=== PATIENT | male | born 1960 | race Two or more races ===

== ENCOUNTER 2023-11-01 16:49 | Inpatient (IN) | payer OTHER ==
[~2023-11-01] VITALS: Ht 172.7 cm; Wt 88.2 kg
[2023-11-01 18:04] LABS: Basophils # (auto) 0 10 ^3/uL (0-0.2); Basophils % (auto) 0.4 % (0.0-2.0); Eosinophils # (auto) 0.1 10 ^3/uL (0-0.8); Eosinophils % (auto) 1.9 % (0.0-7.0); Hematocrit 25.6 % (41.0-53.0); Hemoglobin 8.6 g/dL (13.5-17.5); Lymphocytes # (auto) 0.8 10 ^3/uL (0.4-5.4); Lymphocytes % (auto) 15.1 % (10.0-50.0); Mean Corpuscular Hemoglobin 27.7 pg (28.0-32.0); Mean Corpuscular Hgb Conc. 33.5 g/dL (32.0-36.0); Mean Corpuscular Volume 82.5 fL (80.0-100.0); Monocytes # (auto) 0.5 10 ^3/uL (0-1.3); Monocytes % (auto) 8.8 % (0.0-12.0); Neutrophils % (auto) 73.8 % (37.0-80.0); Nucleated Red Blood Cells % 0.1 %; Platelet Count (auto) 195 10^3/uL (140-450); Red Cell Distribution Width 18.9 % (11.8-14.3); White Blood Cell 5.5 10^3/uL (4.4-10.8)
[2023-11-01 18:21] LABS: Alanine Aminotransferase 43 U/L (7-40); Albumin 4.3 g/dL (3.2-4.8); Alkaline Phosphatase 92 U/L (46-116); Anion Gap 16 (5-15); Aspartate Aminotransferase 19 U/L (13-40); BUN/Creatinine Ratio 11.9 (10.0-20.0); Bilirubin, Total 0.3 mg/dL (0.2-1.0); Calcium 9.3 mg/dL (8.7-10.4); Carbon Dioxide 11 mmol/L (20-30); Chloride 113 mmol/L (98-107); Glucose 100 mg/dL (74-106); Potassium 4.9 mmol/L (3.5-5.1); Sodium 140 mmol/L (136-145); Total Protein 6.9 g/dL (5.7-8.2)
[2023-11-01 18:32] LABS: Blood Urea Nitrogen 93 mg/dL (9-23)
[2023-11-01] MEDS: PANTOPRAZOLE 40 MG TAB PO ONE (18:43)
[2023-11-01 18:44] LABS: Lipase 407 U/L (12-53)
[2023-11-01 18:49] VITALS: PULSE 80; RESP 16; O2SAT 97
[2023-11-01 19:48] LABS: Urine Amorphous Crystal FEW /hpf (None Seen); Urine Bacteria FEW /hpf (None Seen); Urine Blood 1+ /uL (Negative); Urine Clarity Turbid (Clear); Urine Color Colorless (Yellow); Urine Protein, UAD 1+ (Negative); Urine Urobilinogen Normal (Negative); Urine WBC 5 /hpf (0 - 3)
[2023-11-01] MEDS ORDERED: NITROGLYCERIN 0.4 MG SL TAB SL PRN (22:00)
[2023-11-01] MEDS ORDERED: HYDROcodone-ACET 5/325MG TAB PO PRN (22:00)
[2023-11-01] MEDS ORDERED: MORPHINE SULFATE INJ 2 MG/ml SYRG IV PRN (22:00)
[2023-11-01] MEDS ORDERED: ONDANSETRON HCL 4 MG/2 ML VIAL IV PRN (22:00)
[2023-11-01] MEDS ORDERED: ACETAMINOPHEN 325 MG TAB PO PRN (22:00)
[2023-11-01] MEDS ORDERED: DOCUSATE SOD 100 MG CAP PO PRN (22:00)
[2023-11-01] MEDS: SODIUM BICARB 50mEq/50ml Vial 150 ML in D5W 5% 1,000 ML IV ONE (22:44)
[2023-11-02] VITALS (8 sets, daily range): BP systolic 105–122; BP diastolic 50–72; PULSE 64–77; RESP 16–20; TEMP 97.8–99; O2SAT 96–100
[2023-11-02 05:47] LABS: Basophils # (auto) 0 10 ^3/uL (0-0.2); Eosinophils # (auto) 0.1 10 ^3/uL (0-0.8); Lymphocytes # (auto) 0.9 10 ^3/uL (0.4-5.4); Monocytes # (auto) 0.5 10 ^3/uL (0-1.3); Neutrophils # (auto) 2.9 10 ^3/uL (1.6-8.6)
[2023-11-02 05:50] LABS: Basophils % (auto) 0.4 % (0.0-2.0); Eosinophils % (auto) 2.6 % (0.0-7.0); Hematocrit 24.2 % (41.0-53.0); Lymphocytes % (auto) 19.7 % (10.0-50.0); Mean Corpuscular Hemoglobin 27.4 pg (28.0-32.0); Monocytes % (auto) 11.5 % (0.0-12.0); Neutrophils % (auto) 65.8 % (37.0-80.0); Nucleated Red Blood Cells % 0.4 %; Platelet Count (auto) 161 10^3/uL (140-450); Red Blood Cells 2.91 10^6/uL (4.5-5.90); Red Cell Distribution Width 18.7 % (11.8-14.3); White Blood Cell 4.4 10^3/uL (4.4-10.8)
[2023-11-02 06:06] LABS: % Iron Saturation 19.9 % (20-55); Alanine Aminotransferase 34 U/L (7-40); Albumin 3.7 g/dL (3.2-4.8); Alkaline Phosphatase 82 U/L (46-116); Anion Gap 13 (5-15); Aspartate Aminotransferase 17 U/L (13-40); BUN/Creatinine Ratio 10.6 (10.0-20.0); Calcium 8.9 mg/dL (8.7-10.4); Carbon Dioxide 13 mmol/L (20-30); Chloride 117 mmol/L (98-107); Glucose 91 mg/dL (74-106); Potassium 4.6 mmol/L (3.5-5.1); Sodium 143 mmol/L (136-145)
[2023-11-02 06:07] LABS: Bilirubin, Total 0.2 mg/dL (0.2-1.0); Phosphorus 8.1 mg/dL (2.4-5.1); Total Protein 5.9 g/dL (5.7-8.2)
[2023-11-02 06:30] LABS: Blood Urea Nitrogen 82 mg/dL (9-23)
[2023-11-02] MEDS ORDERED: LEVO75TA6 PO (10:01)
[2023-11-02] MEDS: PANTOPRAZOLE 40 MG/10 ML VIAL INJ IV SCH (11:50)
[2023-11-02] MEDS: IRON SUCROSE COMPLEX 100 ML IV SCH (11:51)
[2023-11-02] MEDS: SEVELAMER 800 MG TAB PO SCH (17:12)
[2023-11-02] MEDS: LACTATED RINGER'S 1,000 ML IV SCH (17:28)
[2023-11-02 18:51] LABS: Protein, Urine 135.4 mg/dL (0.0-11.9)
[2023-11-02 18:52] LABS: Creatinine, Urine 36.45 mg/dL (30.0-125.0)
[2023-11-02 18:54] LABS: Creatinine, Urine 36.37 mg/dL (30.0-125.0); Urine Protein/Creatinine Ratio 3.72
[2023-11-03] VITALS (10 sets, daily range): BP systolic 111–130; BP diastolic 60–74; PULSE 70–96; RESP 17–20; TEMP 97.6–98.6; O2SAT 96–100
[2023-11-03 05:53] LABS: Basophils # (auto) 0 10 ^3/uL (0-0.2); Basophils % (auto) 0.4 % (0.0-2.0); Eosinophils # (auto) 0.1 10 ^3/uL (0-0.8); Eosinophils % (auto) 2.3 % (0.0-7.0); Hemoglobin 7.9 g/dL (13.5-17.5); Lymphocytes # (auto) 0.8 10 ^3/uL (0.4-5.4); Monocytes # (auto) 0.5 10 ^3/uL (0-1.3); Neutrophils # (auto) 3.2 10 ^3/uL (1.6-8.6); Neutrophils % (auto) 70.2 % (37.0-80.0); Platelet Count (auto) 163 10^3/uL (140-450); White Blood Cell 4.6 10^3/uL (4.4-10.8)
[2023-11-03 05:55] LABS: Hematocrit 23.4 % (41.0-53.0); Lymphocytes % (auto) 16.8 % (10.0-50.0); Mean Corpuscular Hemoglobin 27.5 pg (28.0-32.0); Mean Corpuscular Hgb Conc. 33.7 g/dL (32.0-36.0); Mean Corpuscular Volume 81.5 fL (80.0-100.0); Monocytes % (auto) 10.3 % (0.0-12.0); Nucleated Red Blood Cells % 0.2 %; Red Blood Cells 2.87 10^6/uL (4.5-5.90); Red Cell Distribution Width 18.7 % (11.8-14.3)
[2023-11-03 06:03] LABS: Chloride 115 mmol/L (98-107); Sodium 145 mmol/L (136-145)
[2023-11-03 06:04] LABS: Anion Gap 14 (5-15); Carbon Dioxide 16 mmol/L (20-30)
[2023-11-03 06:08] LABS: Uric Acid 9.3 mg/dL (3.7-9.2)
[2023-11-03 06:09] LABS: BUN/Creatinine Ratio 11.4 (10.0-20.0); Glucose 87 mg/dL (74-106)
[2023-11-03 06:18] LABS: Blood Urea Nitrogen 89 mg/dL (9-23)
[2023-11-03 09:07] LABS: Anti-Nuclear Antibody Direct Negative (Negative); Complement C3 132 mg/dL (82-167)
[2023-11-03 15:59] LABS: INR 1.03 (0.9-1.15); Partial Thromboplastin Time 34.1 SEC (24.5-34.5); Prothrombin Time 10.9 sec (9.3-11.8)
[2023-11-03] MEDS: SODIUM BICARBONATE 650 MG TAB PO SCH (18:05)
[2023-11-04] VITALS (8 sets, daily range): BP systolic 105–122; BP diastolic 53–68; PULSE 60–94; RESP 16–20; TEMP 97.3–98.1; O2SAT 91–99
[2023-11-04 05:57] LABS: Basophils # (auto) 0 10 ^3/uL (0-0.2); Eosinophils # (auto) 0.1 10 ^3/uL (0-0.8); Hemoglobin 7.9 g/dL (13.5-17.5); Lymphocytes # (auto) 0.8 10 ^3/uL (0.4-5.4); Mean Corpuscular Hgb Conc. 33.7 g/dL (32.0-36.0); Monocytes # (auto) 0.4 10 ^3/uL (0-1.3); Neutrophils # (auto) 2.9 10 ^3/uL (1.6-8.6); White Blood Cell 4.3 10^3/uL (4.4-10.8)
[2023-11-04 06:00] LABS: Basophils % (auto) 0.5 % (0.0-2.0); Eosinophils % (auto) 3.3 % (0.0-7.0); Hematocrit 23.5 % (41.0-53.0); Lymphocytes % (auto) 19.2 % (10.0-50.0); Mean Corpuscular Hemoglobin 27.2 pg (28.0-32.0); Mean Corpuscular Volume 80.8 fL (80.0-100.0); Monocytes % (auto) 9.3 % (0.0-12.0); Neutrophils % (auto) 67.7 % (37.0-80.0); Nucleated Red Blood Cells % 0.1 %; Platelet Count (auto) 160 10^3/uL (140-450); Red Cell Distribution Width 18.6 % (11.8-14.3)
[2023-11-04 06:11] LABS: Chloride 116 mmol/L (98-107); Potassium 4.9 mmol/L (3.5-5.1); Sodium 147 mmol/L (136-145)
[2023-11-04 06:12] LABS: Anion Gap 13 (5-15); Carbon Dioxide 18 mmol/L (20-30)
[2023-11-04 06:13] LABS: Calcium 9.4 mg/dL (8.7-10.4)
[2023-11-04 06:17] LABS: Glucose 80 mg/dL (74-106)
[2023-11-04 06:18] LABS: BUN/Creatinine Ratio 10.4 (10.0-20.0)
[2023-11-04 06:25] LABS: Blood Urea Nitrogen 87 mg/dL (9-23)
[2023-11-04] MEDS: SOD CHL 0.45% 1,000 ML IV SCH (15:30)
[2023-11-05] VITALS (8 sets, daily range): BP systolic 108–119; BP diastolic 58–69; PULSE 57–81; RESP 14–20; TEMP 97.3–98; O2SAT 94–97
[2023-11-05 06:11] LABS: Basophils # (auto) 0 10 ^3/uL (0-0.2); Eosinophils # (auto) 0.2 10 ^3/uL (0-0.8); Hemoglobin 7.7 g/dL (13.5-17.5); Lymphocytes # (auto) 0.8 10 ^3/uL (0.4-5.4); Monocytes # (auto) 0.5 10 ^3/uL (0-1.3); Neutrophils # (auto) 2.7 10 ^3/uL (1.6-8.6); Nucleated Red Blood Cells % 0.1 %
[2023-11-05 06:14] LABS: Basophils % (auto) 0.6 % (0.0-2.0); Eosinophils % (auto) 3.7 % (0.0-7.0); Hematocrit 22.9 % (41.0-53.0); Mean Corpuscular Hemoglobin 27.5 pg (28.0-32.0); Mean Corpuscular Hgb Conc. 33.7 g/dL (32.0-36.0); Mean Corpuscular Volume 81.4 fL (80.0-100.0); Neutrophils % (auto) 64.7 % (37.0-80.0); Platelet Count (auto) 151 10^3/uL (140-450); Red Blood Cells 2.81 10^6/uL (4.5-5.90); Red Cell Distribution Width 18.3 % (11.8-14.3); White Blood Cell 4.2 10^3/uL (4.4-10.8)
[2023-11-05 06:21] LABS: Anion Gap 10 (5-15); Carbon Dioxide 19 mmol/L (20-30); Chloride 114 mmol/L (98-107); Potassium 5.3 mmol/L (3.5-5.1); Sodium 143 mmol/L (136-145)
[2023-11-05 06:22] LABS: Calcium 9.3 mg/dL (8.7-10.4)
[2023-11-05 06:27] LABS: BUN/Creatinine Ratio 10.2 (10.0-20.0); Glucose 80 mg/dL (74-106)
[2023-11-05 06:37] LABS: Blood Urea Nitrogen 83 mg/dL (9-23)
[2023-11-05] MEDS: SODIUM ZIRCONIUM CYCL 10 GM PAK PO ONE (09:48)
[2023-11-05] MEDS: FUROSEMIDE 100 MG/10ML VIAL IV ONE (10:01)
[2023-11-05] MEDS: SODIUM BICARB 8.4% 50Meq/50ml SYR Vial IV ONE (17:47)
[2023-11-06] VITALS (8 sets, daily range): BP systolic 104–121; BP diastolic 50–71; PULSE 63–86; RESP 15–20; TEMP 97.6–98.2; O2SAT 94–97
[2023-11-06 05:51] LABS: Chloride 114 mmol/L (98-107); Potassium 4.7 mmol/L (3.5-5.1); Sodium 146 mmol/L (136-145)
[2023-11-06 05:52] LABS: Anion Gap 11 (5-15); Carbon Dioxide 21 mmol/L (20-30)
[2023-11-06 05:53] LABS: Calcium 8.9 mg/dL (8.7-10.4)
[2023-11-06 05:57] LABS: BUN/Creatinine Ratio 9.7 (10.0-20.0); Glucose 81 mg/dL (74-106)
[2023-11-06 05:59] LABS: Basophils # (auto) 0 10 ^3/uL (0-0.2); Basophils % (auto) 0.6 % (0.0-2.0); Eosinophils # (auto) 0.1 10 ^3/uL (0-0.8); Eosinophils % (auto) 3.1 % (0.0-7.0); Hematocrit 22.6 % (41.0-53.0); Hemoglobin 7.6 g/dL (13.5-17.5); Lymphocytes % (auto) 21.2 % (10.0-50.0); Mean Corpuscular Hemoglobin 27.4 pg (28.0-32.0); Mean Corpuscular Hgb Conc. 33.8 g/dL (32.0-36.0); Mean Corpuscular Volume 81.1 fL (80.0-100.0); Monocytes # (auto) 0.5 10 ^3/uL (0-1.3); Monocytes % (auto) 10.7 % (0.0-12.0); Neutrophils % (auto) 64.4 % (37.0-80.0); Platelet Count (auto) 150 10^3/uL (140-450); Red Blood Cells 2.78 10^6/uL (4.5-5.90); Red Cell Distribution Width 18.1 % (11.8-14.3); White Blood Cell 4.6 10^3/uL (4.4-10.8)
[2023-11-06 06:14] LABS: Blood Urea Nitrogen 81 mg/dL (9-23)
[2023-11-06 08:06] LABS: Immunoglobulin A 50 mg/dL (61-437); Immunoglobulin G, Serum 514 mg/dL (603-1613); Immunoglobulin M 8 mg/dL (20-172)
[2023-11-06 09:06] LABS: Kappa Lite Chain Free Serum 35.8 mg/L (3.3-19.4)
[2023-11-06 19:06] LABS: Antimyeloperoxidase (MPO) Ab <0.2 units (0.0-0.9); Antiproteinase 3 (PR-3) Ab <0.2 units (0.0-0.9)
[2023-11-07] VITALS (15 sets, daily range): BP systolic 96–163; BP diastolic 48–90; PULSE 66–96; RESP 13–20; TEMP 97–98.4; O2SAT 94–99
[2023-11-07 09:06] LABS: Albumin 2.8 g/dL (2.9-4.4); Alpha-1-Globulin 0.3 g/dL (0.0-0.4); Alpha-2-Globulin 0.9 g/dL (0.4-1.0); Gamma Globulin 0.5 g/dL (0.4-1.8); Globulin Total 2.8 g/dL (2.2-3.9); Protein Total Serum 5.6 g/dL (6.0-8.5)
[2023-11-07] MEDS: HEPARIN SODIUM (PORCINE) 5000 UNITS/ML 1ML VIAL ONE (09:24)
[2023-11-07] MEDS: MIDAZOLAM HCL 2MG/2ML 2ml VIAL (1mg/ml) ONE (09:24)
[2023-11-07] MEDS: fentaNYL CITRATE 100 MCG/2 ML VL ONE (09:24)
[2023-11-07] MEDS: HEPARIN IN NS 1000Units/500mL 1,500 ML ONE (09:25)
[2023-11-07] MEDS: IODIXANOL 320MG/ML 100ML BTL IV ONE (09:25)
[2023-11-07] MEDS: LIDOCAINE 2%HCL (LOCAL ANESTH.) INJ 10ml MDV ONE (09:25)
[2023-11-07] MEDS: EPOETIN ALFA-EPBX 4,000 UNIT/ML VIAL SC SCH (09:38)
[2023-11-07 09:47] LABS: Prothrombin Time 10.5 sec (9.3-11.8)
[2023-11-07 09:48] LABS: INR 0.97 (0.9-1.15); Partial Thromboplastin Time 30.7 SEC (24.5-34.5)
[2023-11-07] MEDS: ceFAZolin 1GM/50ML 50 ML IV ONE (10:33)
[2023-11-07 10:40] LABS: Chloride 113 mmol/L (98-107); Potassium 4.6 mmol/L (3.5-5.1); Sodium 145 mmol/L (136-145)
[2023-11-07 10:41] LABS: Anion Gap 14 (5-15); Carbon Dioxide 18 mmol/L (20-30)
[2023-11-07 10:42] LABS: Calcium 9.8 mg/dL (8.7-10.4)
[2023-11-07 10:46] LABS: Glucose 85 mg/dL (74-106)
[2023-11-07 10:47] LABS: BUN/Creatinine Ratio 9.9 (10.0-20.0); Blood Urea Nitrogen 79 mg/dL (9-23)
[2023-11-07] MEDS: SODIUM CHL 0.9% 1000 ML BAG XX ONE (18:45)
[2023-11-07] MEDS: EPOETIN ALFA-EPBX 4,000 UNIT/ML VIAL SC ONE (21:12)
[2023-11-08] VITALS (8 sets, daily range): BP systolic 99–110; BP diastolic 45–67; PULSE 71–90; RESP 16–20; TEMP 97.6–99; O2SAT 95–99
[2023-11-08 09:41] LABS: Anion Gap 9 (5-15); Calcium 9.6 mg/dL (8.7-10.4); Carbon Dioxide 27 mmol/L (20-30); Chloride 107 mmol/L (98-107); Potassium 4.5 mmol/L (3.5-5.1); Sodium 143 mmol/L (136-145)
[2023-11-08 09:47] LABS: BUN/Creatinine Ratio 8.7 (10.0-20.0); Blood Urea Nitrogen 58 mg/dL (9-23); Glucose 86 mg/dL (74-106)
[2023-11-08] MEDS: ASPirin 81 mg TAB PO SCH (12:45)
[2023-11-08 13:07] LABS: Cytoplasmic (C-ANCA) <1:20 titer (Neg:<1:20); Perinuclear (P-ANCA) <1:20 titer (Neg:<1:20)
[2023-11-09] VITALS (9 sets, daily range): BP systolic 121–149; BP diastolic 49–70; PULSE 72–96; RESP 17–20; TEMP 97.7–99.2; O2SAT 95–97
[2023-11-09 06:06] LABS: Albumin Urine 3.2 % (.); Alpha-1-Globulin Urine 1.8 % (.); Alpha-2-Globulin Urine 4.4 % (.); Beta Globulin Urine 69.1 % (.); Gamma Globulin Urine 21.5 % (.); M-Spike % 60.1 % (Not Observed); Protein Total Urine 215.4 mg/dL (Not Estab.)
[2023-11-09] MEDS ORDERED: SODIUM CHL 0.9% 1000 ML BAG XX ONE (08:15)
[2023-11-09 09:41] LABS: Hepatitis B Surface Antigen Negative (Negative)
[2023-11-09 09:58] LABS: Chloride 104 mmol/L (98-107); Potassium 4.1 mmol/L (3.5-5.1); Sodium 139 mmol/L (136-145)
[2023-11-09 09:59] LABS: Anion Gap 6 (5-15); Calcium 9.6 mg/dL (8.7-10.4); Carbon Dioxide 29 mmol/L (20-30)
[2023-11-09 10:02] LABS: Hepatitis B Core IgM Negative
[2023-11-09 10:02] LABS: Basophils # (auto) 0 10 ^3/uL (0-0.2); Basophils % (auto) 0.6 % (0.0-2.0); Eosinophils # (auto) 0.1 10 ^3/uL (0-0.8); Eosinophils % (auto) 1.9 % (0.0-7.0); Hematocrit 26.1 % (41.0-53.0); Hemoglobin 8.7 g/dL (13.5-17.5); Lymphocytes # (auto) 1.7 10 ^3/uL (0.4-5.4); Mean Corpuscular Hemoglobin 27.2 pg (28.0-32.0); Mean Corpuscular Hgb Conc. 33.5 g/dL (32.0-36.0); Mean Corpuscular Volume 81.2 fL (80.0-100.0); Monocytes # (auto) 0.5 10 ^3/uL (0-1.3); Monocytes % (auto) 8.4 % (0.0-12.0); Neutrophils # (auto) 3.4 10 ^3/uL (1.6-8.6); Neutrophils % (auto) 60.1 % (37.0-80.0); Platelet Count (auto) 170 10^3/uL (140-450); Red Blood Cells 3.21 10^6/uL (4.5-5.90); Red Cell Distribution Width 18.1 % (11.8-14.3); White Blood Cell 5.7 10^3/uL (4.4-10.8)
[2023-11-09 10:03] LABS: Hepatitis C Antibody Negative (Negative)
[2023-11-09 10:04] LABS: BUN/Creatinine Ratio 9.2 (10.0-20.0); Glucose 119 mg/dL (74-106)
[2023-11-09 10:24] LABS: Blood Urea Nitrogen 39 mg/dL (9-23)
[2023-11-09] MEDS ORDERED: SEVE800T7 PO (15:56)
[2023-11-09 16:30] LABS: Hepatitis A Ab IgM Negative
[2023-11-09] MEDS: EPOETIN ALFA-EPBX 10,000 UNIT/1ML VIAL SC ONE (20:59)
[2023-11-10 01:00] VITALS: BP 125/61; PULSE 87; RESP 16; TEMP 98.6; O2SAT 93
[2023-11-10 05:00] VITALS: BP 126/50; PULSE 94; RESP 16; TEMP 98.9; O2SAT 95
[2023-11-10 08:00] VITALS: PULSE 77
[2023-11-10 09:00] VITALS: BP 123/62; PULSE 76; RESP 17; TEMP 99.4; O2SAT 91
[2023-11-10 13:00] VITALS: BP 104/61; PULSE 83; RESP 17; TEMP 98.7; O2SAT 94
[2023-11-10 14:57] LABS: Chloride 99 mmol/L (98-107); Potassium 3.6 mmol/L (3.5-5.1); Sodium 137 mmol/L (136-145)
[2023-11-10 14:58] LABS: Anion Gap 10 (5-15); Carbon Dioxide 28 mmol/L (20-30)
[2023-11-10 15:03] LABS: BUN/Creatinine Ratio 7.5 (10.0-20.0); Glucose 199 mg/dL (74-106)
[2023-11-10 15:14] LABS: Blood Urea Nitrogen 50 mg/dL (9-23)
[2023-11-10 17:00] VITALS: BP 126/53; PULSE 71; RESP 17; TEMP 98.4; O2SAT 95
== END 2023-11-10 18:56 | disposition home or self-care (01) | DRG 674 ==
LOC: ER 16:49 → TELE 21:58 → TELE-E-ADS 11-02 08:24 → TELE-EAST 11-02 11:05
PROVIDERS: ADMIT Nurse Practitioner Family; ATTEND Internal Medicine
PROC: 0JH63XZ Insertion of Tunneled Vascular Access Device into Chest Subcutaneous Tissue and Fascia, Percutaneous Approach (ICD-10-PCS; principal; 2023-11-07)
PROC: 02HV33Z Insertion of Infusion Device into Superior Vena Cava, Percutaneous Approach (ICD-10-PCS; 2023-11-07)
PROC: B5181ZA Fluoroscopy of Superior Vena Cava using Low Osmolar Contrast, Guidance (ICD-10-PCS; 2023-11-07)
PROC: B548ZZA Ultrasonography of Superior Vena Cava, Guidance (ICD-10-PCS; 2023-11-07)
PROC: 5A1D70Z Performance of Urinary Filtration, Intermittent, Less than 6 Hours Per Day (ICD-10-PCS; 2023-11-07)
PROC: 0TB13ZX Excision of Left Kidney, Percutaneous Approach, Diagnostic (ICD-10-PCS; 2023-11-08)
PROC: 5A1D70Z Performance of Urinary Filtration, Intermittent, Less than 6 Hours Per Day (ICD-10-PCS; 2023-11-09)
DX: N17.9 Acute kidney failure, unspecified (principal); C90.00 Multiple myeloma not having achieved remission; E87.20 Acidosis, unspecified; E87.0 Hyperosmolality and hypernatremia; E03.9 Hypothyroidism, unspecified; D50.9 Iron deficiency anemia, unspecified; E87.5 Hyperkalemia; E83.39 Other disorders of phosphorus metabolism; D63.1 Anemia in chronic kidney disease; R74.8 Abnormal levels of other serum enzymes; N18.6 End stage renal disease; I95.9 Hypotension, unspecified; Z99.2 Dependence on renal dialysis
CPT/HCPCS: 36415; 36558; 71045; 71250; 74176; 76775; 76942; 77001; 80048; 80053; 80074; 81001; 82306; 82570; 82784; 83036; 83520; 83521; 83540; 83550; 83690; 83970; 84100; 84155; 84156; 84165; 84166; 84300; 84484; 84550; 85025; 85610; 85730; 86038; 86160; 86256; 86334; 86335; 86850; 86900; 86901; 90935; 93005; 93971; 99152; C1894; G0378; J1642; J1756; J2001; J2250; J2470; Q9967

== ENCOUNTER 2024-02-23 09:30 | Emergency (ER) | payer OTHER ==
[~2024-02-23] VITALS: Ht 172.7 cm; Wt 75.3 kg
[~2024-02-23 09:30] MED LIST: LEVO75TA6 PO; SEVE800T7 PO
--- NOTE | 2024-02-23 09:57 | ED.PDOC ---
GI ASSESSMENT HPI Comments 63 y.o male with PMH of ESRD, dialysis M,W,F, multiple myeloma, presents to the ED for a chief complaint of dark tarry diarrhea x one day associated with chest discomfort and SOB x today. Patient reports finishing dialysis today and developed chest pain with SOB. Patient denies any blood thinner use, nausea, vomiting, abdominal pain, fever, or chills. Chief Complaint: GI Bleed Time Seen by MD: 09:54 Reviewed Notes: Nurses Notes, Medications, Allergies Allergies: Coded Allergies: NO KNOWN ALLERGIES (Unverified , 11/01/23) Home Meds Active Scripts Sevelamer Hydrochloride (Renagel) 800 Mg Tab, 1600 MG PO TIDWM for 30 Days, #180 TAB Prov:JARAD SO MD 11/09/23 Reported Medications Levothyroxine Sodium (Levothyroxine Sodium) 75 Mcg Tab, 1 TAB PO QAM 11/02/23 Information Source: Patient Mode of Arrival: Ambulatory Timing: Days (1) Duration: Since onset Quality: None Vomitus: None Stool: Loose, Black Severity: Moderate Recent: None Recent Hx of: None Pain Location: None Modifying Factors: Nothing Associated sign and symptoms: Blood in Stool Past Medical History PAST MEDICAL HISTORY: Cancer, ESRD Surgical History: Denies all surgeries Family History Family History: Reviewed,noncontributory to illness Social History Smoker: Non-Smoker Alcohol: Denies ETOH Use Drugs: Denies Drug Use Lives In: Home Constitutional: denies: chills, diaphoresis, fatigue, fever, malaise, sweats, weakness, others EENTM: denies: blurred vision, double vision, ear bleeding, ear discharge, ear drainage, ear pain, ear ringing, eye pain, eye redness, hearing loss, mouth pain, mouth swelling, nasal discharge, nose bleeding, nose congestion, nose pain, photophobia, tearing, throat pain, throat swelling, voice changes, others Respiratory: reports: SOB at rest, shortness of breath; denies: cough, hemopty sis, orthopnea, SOB with excertion, stridor, wheezing, others Cardiovascular: reports: chest pain; denies: dizzy spells, diaphoresis, Dyspnea on exertion, edema, irregular heart beat, left arm pain, lightheadedness, palpitations, PND, syncope, others Gastrointestinal: reports: melena; denies: abdomen distended, abdominal pain, blood streaked bowels, constipated, diarrhea, dysphagia, difficulty swallowing, hematemesis, nausea, poor appetite, poor fluid intake, rectal bleeding, rectal pain, vomiting, others Genitourinary: denies: burning, dysuria, flank pain, frequency, hematuria, incontinence, penile discharge, penile sore, pain, testicle pain, testicle swelling, urgency, others Neurological: denies: dizziness, fainting, headache, left sided numbness, left sided weakness, numbness, paresthesia, pre-existing deficit, right sided numbness, right sided weakness, seizure, speech problems, tingling, tremors, weakness, others Musculoskeletal: denies: back pain, gout, joint pain, joint swelling, muscle pain, muscle stiffness, neck pain, others Integumetry: denies: bruises, change in color, change in hair/nails, dryness, laceration, lesions, lumps, rash, wounds, others Allergic/Immunocompromised: denies: Difficulty Healing, Frequent Infections, Hives, Itching, others Hematologic/Lymphatic: denies: anemia, blood clots, easy bleeding, easy bruising, swollen glands, others Endocrine: denies: excessive hunger, excessive sweating, excessive thirst, excessive urination, flushing, intolerance to cold, intolerance to heat, unexplained weight gain, unexplained weight loss, others Psychiatric: denies: anxiety, bipolar disorder, depression, hopeless, panic disorder, schizophrenia, sleepless, suicidal, others All Other Systems: Reviewed and Negative Physical Exam General Appearance: Moderate Distress HEENT: Normal ENT Inspection, Pharynx Normal, TMs Normal Neck: Full Range of Motion, Non-Tender, Normal, Normal Inspection Respiratory: Chest Non-Tender, Lungs Clear, No Accessory Muscle Use, No Respiratory Distress, Normal Breath Sounds Cardiovascular: No Edema, No JVD, No Murmur, No Gallop, Normal Peripheral Pulses, Regular Rate/Rhythm Breast Exam: Deferred Gastrointestinal: No Organomegaly, Non Tender, No Pulsatile Mass, Normal Bowel Sounds, Soft Genitalia: Deferred Pelvic: Deferred Rectal: Deferred Extremities: No calf tenderness, Normal capillary refill, Normal inspection, Normal range of motion, Non-tender, No pedal edema Musculoskeletal : Apperance: Normal Neurologic: Alert, protein chemist II-XII nml as Tested, No Motor Deficits, Normal Affect, Normal Mood, No Sensory Deficits Cerebellar Function: Normal Reflexes: Normal Skin: Normal Color Peripheral Pulses: 3+ Radial (R), 3+ Radial (L) Lymphatic: No Adenopathy Was a procedure done? Was a procedure done?: No GI differential Dx Differential Diagnosis: Constipation, Diverticular disease, Esophagitis, Gastritis/PUD, Gastroenteritis, Viral, Anemia, Esophageal Varicies X-Ray, Labs, Meds, VS Vital Signs Date Time Temp Pulse Resp B/P (MAP) Pulse Ox O2 Delivery O2 Flow Rate FiO2 02/23/24 13:35 87 17 94/38 (56) 96 02/23/24 13:29 87 17 96 Room Air* 0 21 02/23/24 09:51 98.0 94 18 101/57 (72) 100 Lab Test 02/23/24 09:51 Range/Units White Blood Count 2.4 L 4.4-10.8 10^3/uL Red Blood Count 2.63 L 4.5-5.90 10^6/uL Hemoglobin 7.4 L 13.5-17.5 g/dL Hematocrit 22.8 L 41.0-53.0 % Mean Corpuscular Volume 86.7 80.0-100.0 fL Mean Corpuscular Hemoglobin 28.0 28.0-32.0 pg Mean Corpuscular Hemoglobin Concent 32.3 32.0-36.0 g/dL Red Cell Distribution Width 20.0 H 11.8-14.3 % Platelet Count 179 140-450 10^3/uL Mean Platelet Volume 9.5 6.9-10.8 fL Neutrophils (%) (Auto) 64.8 37.0-80.0 % Lymphocytes (%) (Auto) 18.4 10.0-50.0 % Monocytes (%) (Auto) 15.1 H 0.0-12.0 % Eosinophils (%) (Auto) 1.0 0.0-7.0 % Basophils (%) (Auto) 0.7 0.0-2.0 % Neutrophils # (Auto) 1.6 1.6-8.6 10 ^3/uL Lymphocytes # (Auto) 0.4 0.4-5.4 10 ^3/uL Monocytes # (Auto) 0.4 0-1.3 10 ^3/uL Eosinophils # (Auto) 0 0-0.8 10 ^3/uL Basophils # (Auto) 0 0-0.2 10 ^3/uL Nucleated Red Blood Cells 0.0 % Sodium Level 142 136-145 mmol/L Potassium Level 4.2 3.5-5.1 mmol/L Chloride Level 105 98-107 mmol/L Carbon Dioxide Level 31 20-31 mmol/L Anion Gap 6 5-15 Blood Urea Nitrogen 25 H 9-23 mg/dL Creatinine 3.73 H 0.700-1.30 mg/dL Glomerular Filtration Rate Calc 18 >90 mL/min BUN/Creatinine Ratio 6.7 L 10.0-20.0 Serum Glucose 82 74-106 mg/dL Calcium Level 8.9 8.7-10.4 mg/dL Current Medications Medications (Trade) Dose Ordered Sig/Jay Route Start Time Stop Time Status Last Admin Pantoprazole Sodium (Protonix) 40 mg ONCE ONCE IV 02/23/24 11:00 02/23/24 11:01 DC 02/23/24 11:46 Patient alert. Has a tunneled catheter for dialysis in place. Vitals stable. Answering all questions. Kidney function elevated. States that he has been having tarry stools for the past few days. Hemoglobin is low. GI consultation. Was given Protonix. Nephrology consultation. Reviewed his history. Explained to the patient. Continue cardiac monitoring. Time of 1ST Reevaluation: 10:05 Reevaluation 1ST: Unchanged Patient Education/Counseling: Diagnosis, Treatment, Prognosis Family Education/Counseling: No Family Present Additional Information The following tests were ordered, and results were reviewed by me: Labs I discussed treatment and results with medical personnel and patient Departure 1 Departure Time of Disposition: 10:47 Impression: Primary Impression: GI bleed Qualified Codes: K92.2 - Gastrointestinal hemorrhage, unspecified Additional Impressions: Severe anemia Chronic kidney disease on chronic dialysis Disposition: ADMITTED INPATIENT Admit to: Med Surg Condition: Guarded Critical Care Note Critical Care Time?: Yes (45 min-critical care time only) Stability Stability form required: No Heart Score Heart Score: Heart Score Response (Comments) Value History Slightly Suspicious 0 EKG Normal 0 Age 45-64 1 Risk Factors 1 or 2 risk factors 1 Troponin Normal limit 0 Total 2 I personally scribed for HARRIET CHAMBERS MD ([email or web address]) on 02/23/24 at 09:57. Electronically submitted by Enedina Braden ([facility]). I personally scribed for HARRIET CHAMBERS MD ([facility] on 02/23/24 at 10:09. Electronically submitted by Enedina Braden ([facility]). HARRIET CHAMBERS MD Feb 23, 2024 09:57
[2024-02-23 10:11] LABS: Basophils # (auto) 0 10 ^3/uL (0-0.2); Eosinophils # (auto) 0 10 ^3/uL (0-0.8); Lymphocytes # (auto) 0.4 10 ^3/uL (0.4-5.4); Mean Corpuscular Volume 86.7 fL (80.0-100.0); Monocytes # (auto) 0.4 10 ^3/uL (0-1.3); White Blood Cell 2.4 10^3/uL (4.4-10.8)
[2024-02-23 10:14] LABS: Basophils % (auto) 0.7 % (0.0-2.0); Hematocrit 22.8 % (41.0-53.0); Hemoglobin 7.4 g/dL (13.5-17.5); Lymphocytes % (auto) 18.4 % (10.0-50.0); Mean Corpuscular Hgb Conc. 32.3 g/dL (32.0-36.0); Monocytes % (auto) 15.1 % (0.0-12.0); Neutrophils # (auto) 1.6 10 ^3/uL (1.6-8.6); Neutrophils % (auto) 64.8 % (37.0-80.0); Platelet Count (auto) 179 10^3/uL (140-450); Red Blood Cells 2.63 10^6/uL (4.5-5.90)
[2024-02-23 10:33] LABS: Chloride 105 mmol/L (98-107); Potassium 4.2 mmol/L (3.5-5.1); Sodium 142 mmol/L (136-145)
[2024-02-23 10:34] LABS: Anion Gap 6 (5-15)
[2024-02-23 10:35] LABS: Calcium 8.9 mg/dL (8.7-10.4)
[2024-02-23 10:39] LABS: Carbon Dioxide 31 mmol/L (20-31); Glucose 82 mg/dL (74-106)
[2024-02-23 10:40] LABS: BUN/Creatinine Ratio 6.7 (10.0-20.0); Blood Urea Nitrogen 25 mg/dL (9-23)
[2024-02-23] MEDS: PANTOPRAZOLE 40 MG/10 ML VIAL INJ IV ONE (11:46)
[2024-02-23 13:29] VITALS: PULSE 87; RESP 17; O2SAT 96
[2024-02-23] MEDS ORDERED: ACETAMINOPHEN 325 MG TAB PO PRN (13:45)
[2024-02-23] MEDS ORDERED: MORPHINE SULFATE INJ 2 MG/ml SYRG IV PRN ×2 (13:45)
[2024-02-23] MEDS ORDERED: HYDROcodone-ACET 5/325MG TAB PO PRN (13:45)
[2024-02-23] MEDS ORDERED: NITROGLYCERIN 0.4 MG SL TAB SL PRN (13:45)
[2024-02-23] MEDS ORDERED: ONDANSETRON HCL 4 MG/2 ML VIAL IV PRN (13:45)
--- NOTE | 2024-02-23 14:07 | DVHHP2 ---
History of Present Illness Reason for Visit: Blurry diarrhea for last one day with two episodes History of Present Illness 63-year-old male with a known history of end-stage renal disease on hemodial ysis, multiple myeloma currently on chemotherapy, hypothyroidism initially presented to the hospital with bloody diarrhea two episodes for last one day. Patient was hospitalized here in October when he was diagnosed with a new onset of end-stage renal disease on hemodialysis as well as multiple myeloma. Patient is currently getting chemotherapy. Patient did mentioned that he is losing weight as well as having chronic diarrhea eventually he was recommended to follow up with the GI in 1-2 weeks. Patient stated that he had to cancel his appointment with GI. Patient did mentioned that over the last six months he lost about 80 lb. Patient has stated that she has chronic diarrhea has been resolved for last one month except two episodes of bloody bowel movements for last one day. GI: GI bleed Heme/Onc: Other (Multiple myeloma currently on chemotherapy.) Renal/: Chronic renal insuff Endocrine: Hypothyroidism Past Surgical History: Other (Kidney biopsy.) Smoke: No ALCOHOL: none Review of Systems Review of Systems Twelve review of system are negative besides mentioned above. Allergies: Coded Allergies: NO KNOWN ALLERGIES (Unverified , 11/01/23) Medications Current Medications Medications Dose Ordered Sig/Jay Route Start Time Stop Time Status Last Admin Dose Admin Acetaminophen/ Hydrocodone Bitart 1 tab Q4HP PRN PO 02/23/24 13:45 UNV Ondansetron HCl 4 mg Q4HP PRN IV 02/23/24 13:45 UNV Acetaminophen 650 mg Q6HP PRN PO 02/23/24 13:45 UNV Morphine Sulfate 2 mg Q4HPRN PRN IV 02/23/24 13:45 UNV Nitroglycerin 0.4 mg Q5MINP PRN SL 02/23/24 13:45 UNV Morphine Sulfate 2 mg Q30M PRN IV 02/23/24 13:45 UNV Pantoprazole Sodium 40 mg BID IV 02/23/24 22:00 UNV Exam Vital Signs Vital Signs Date Time Temp Pulse Resp B/P (MAP) Pulse Ox O2 Delivery O2 Flow Rate FiO2 02/23/24 13:35 87 17 94/38 (56) 96 02/23/24 13:29 Room Air* 0 21 02/23/24 09:51 98.0 Exam HEENT pupils are reactive Neck is supple CV is S1-S2 regular rate and rhythm Respiratory are clear GI positive bowel sound, soft nondistended nontender no guarding no rigidity. Extremity no edema MECHANIC'S ASSISTANT no motor deficit. Labs/Xrays Labs Test 02/23/24 09:51 Range/Units White Blood Count 2.4 L 4.4-10.8 10^3/uL Red Blood Count 2.63 L 4.5-5.90 10^6/uL Hemoglobin 7.4 L 13.5-17.5 g/dL Hematocrit 22.8 L 41.0-53.0 % Mean Corpuscular Volume 86.7 80.0-100.0 fL Mean Corpuscular Hemoglobin 28.0 28.0-32.0 pg Mean Corpuscular Hemoglobin Concent 32.3 32.0-36.0 g/dL Red Cell Distribution Width 20.0 H 11.8-14.3 % Platelet Count 179 140-450 10^3/uL Mean Platelet Volume 9.5 6.9-10.8 fL Neutrophils (%) (Auto) 64.8 37.0-80.0 % Lymphocytes (%) (Auto) 18.4 10.0-50.0 % Monocytes (%) (Auto) 15.1 H 0.0-12.0 % Eosinophils (%) (Auto) 1.0 0.0-7.0 % Basophils (%) (Auto) 0.7 0.0-2.0 % Neutrophils # (Auto) 1.6 1.6-8.6 10 ^3/uL Lymphocytes # (Auto) 0.4 0.4-5.4 10 ^3/uL Monocytes # (Auto) 0.4 0-1.3 10 ^3/uL Eosinophils # (Auto) 0 0-0.8 10 ^3/uL Basophils # (Auto) 0 0-0.2 10 ^3/uL Nucleated Red Blood Cells 0.0 % Sodium Level 142 136-145 mmol/L Potassium Level 4.2 3.5-5.1 mmol/L Chloride Level 105 98-107 mmol/L Carbon Dioxide Level 31 20-31 mmol/L Anion Gap 6 5-15 Blood Urea Nitrogen 25 H 9-23 mg/dL Creatinine 3.73 H 0.700-1.30 mg/dL Glomerular Filtration Rate Calc 18 >90 mL/min BUN/Creatinine Ratio 6.7 L 10.0-20.0 Serum Glucose 82 74-106 mg/dL Calcium Level 8.9 8.7-10.4 mg/dL Assessment/Plan Assessment/Plan 63-year-old male with a known history of end-stage renal disease on hemodialysis, multiple myeloma status post chemotherapy, hypothyroidism, previous history of chronic diarrhea presented to the hospital with a black diarrhea found to have 1. GI bleed rule out upper GI/lower GI bleed 2. Acute anemia with a underlying anemia of chronic disease 3. Multiple myeloma currently on chemotherapy 4. End-stage renal disease on hemodialysis 5. Hypothyroidism 6. Loss of 80 lb over the last six months rule out malignancy -admitted to telemetry, Protonix IV, GI consultation -dialysis per renal. -keep NPO after midnight. Plan discussed with: Patient My Orders Orders - JARAD SO MD Procedure Category Date Status Time Admit ADMIT 02/23/24 Transmitted 13:44 Code Status CODE 02/23/24 Transmitted 13:44 2 Gm Sodium Diet DIET 02/23/24 Transmitted Dinner Hydrocodone-Acet PHA 02/23/24 Logged 5/325mg Tab (Circle 13:45 Ondansetron Hcl PHA 02/23/24 Logged (Zofran) 13:45 Complete Blood Count LAB 02/24/24 Verified 04:00 Comprehensive LAB 02/24/24 Verified Metabolic Panel 04:00 Condition: Fair LOIS 02/23/24 In Process 13:44 Acetaminophen Tablet PHA 02/23/24 Logged (Tylenol Tablet) 13:45 Morphine Sulfate PHA 02/23/24 Logged Injection 13:45 Nitroglycerin PHA 02/23/24 Logged Sublingual (Ntrostat 13:45 Morphine Sulfate PHA 02/23/24 Logged Injection 13:45 Stat Ekg For Chest LOIS 02/23/24 In Process Pain 13:44 Notify Md Of Changes [facility] 02/23/24 In Process From Base 13:44 Custom Shoemaker For LOIS 02/23/24 In Process 24 Hours 13:44 Emergency Dysrhythmia LOIS 02/23/24 In Process Protocol 13:44 Rhythm Strips Once LOIS 02/23/24 In Process Every Shift 13:44 Oxygen By Nasal RT 02/23/24 Transmitted Cannula 13:44 *[facility] CONS 02/23/24 Transmitted 13:44 *[facility] CONS 02/23/24 Transmitted -[place] 13:44 Pantoprazole PHA 02/23/24 Logged (Protonix) 22:00 Problem List: (1) GI bleed (2) Chronic kidney disease on chronic dialysis Date of Service: Feb 23, 2024 Billing Provider: JARAD SO MD Common Visit Codes: NOT BILLABLE JARAD SO MD Feb 23, 2024 14:07
[2024-02-23 16:50] VITALS: BP 97/61; PULSE 97; RESP 12; O2SAT 97
[2024-02-23] MEDS ORDERED: PANTOPRAZOLE 40 MG/10 ML VIAL INJ IV SCH (22:00)
== END 2024-02-23 17:00 | disposition home or self-care (01) ==
LOC: ER 09:30 → TELE 13:44 → UNDOADMIN 13:44 → UNDODISIN 16:58
DX: K92.2 Gastrointestinal hemorrhage, unspecified (principal); D64.9 Anemia, unspecified; N18.6 End stage renal disease; R07.89 Other chest pain; R06.02 Shortness of breath; Z99.2 Dependence on renal dialysis; Z79.899 Other long term (current) drug therapy
CPT/HCPCS: 36415; 80048; 85025; 96374; 99291; J2470; G0378

== ENCOUNTER 2024-02-29 12:38 | Emergency (ER) | payer OTHER ==
[~2024-02-29] VITALS: Ht 172.7 cm; Wt 76.0 kg
[2024-02-29 13:32] LABS: Basophils # (auto) 0 10 ^3/uL (0-0.2); Eosinophils # (auto) 0 10 ^3/uL (0-0.8); Lymphocytes # (auto) 0.1 10 ^3/uL (0.4-5.4); Monocytes # (auto) 0.1 10 ^3/uL (0-1.3); Neutrophils # (auto) 2.8 10 ^3/uL (1.6-8.6); Nucleated Red Blood Cells % 0.1 %
[2024-02-29 13:34] LABS: Basophils % (auto) 0.9 % (0.0-2.0); Eosinophils % (auto) 0.6 % (0.0-7.0); Hemoglobin 7.3 g/dL (13.5-17.5); Lymphocytes % (auto) 3.6 % (10.0-50.0); Mean Corpuscular Hemoglobin 28.5 pg (28.0-32.0); Mean Corpuscular Hgb Conc. 31.9 g/dL (32.0-36.0); Mean Corpuscular Volume 89.3 fL (80.0-100.0); Monocytes % (auto) 2.3 % (0.0-12.0); Neutrophils % (auto) 92.6 % (37.0-80.0); Platelet Count (auto) 191 10^3/uL (140-450); Red Blood Cells 2.58 10^6/uL (4.5-5.90); Red Cell Distribution Width 21.7 % (11.8-14.3)
[2024-02-29 13:41] LABS: Alanine Aminotransferase 15 U/L (7-40); Albumin 3.9 g/dL (3.2-4.8); Anion Gap 6 (5-15); BUN/Creatinine Ratio 5.6 (10.0-20.0); Calcium 9.1 mg/dL (8.7-10.4); Carbon Dioxide 31 mmol/L (20-31); Chloride 103 mmol/L (98-107); Potassium 4.7 mmol/L (3.5-5.1); Sodium 140 mmol/L (136-145)
[2024-02-29 13:42] LABS: Bilirubin, Total 0.4 mg/dL (0.2-1.0)
[2024-02-29 13:44] LABS: Alkaline Phosphatase 128 U/L (46-116); Aspartate Aminotransferase 9 U/L (13-40); Blood Urea Nitrogen 32 mg/dL (9-23); Glucose 117 mg/dL (74-106); Total Protein 5.4 g/dL (5.7-8.2)
--- NOTE | 2024-02-29 14:48 | ED.PDOC ---
History of Present Illness HPI Comments 63 y/o M, with a Hx of multiple myeloma and ESRD w/HD M/W/F, presents with abnormal labs, today. Patient endorses on being sent from his chemotherapy appointment, due to being found with a low HgB level of "6," earlier, today. Patient comments on having last lab blood work drawn on 02/26/24 and completing his Monday dialysis session, today, due to dialysis center being closed for the holidays. He only endorses on left-rip vidya, currently, and reports no further relevant or pertinent Hx, such as Hx of blood transfusions. He denies having any weakness, fatigue, lightheadedness, dizziness, shortness of breath, or other associated symptoms or modifiers at this time. Chief Complaint: Abnormal LAB's Time Seen by MD: 14:30 Reviewed Notes: Nurses Notes, Medications, Allergies Allergies: Coded Allergies: NO KNOWN ALLERGIES (Unverified , 11/01/23) Home Meds Active Scripts Sevelamer Hydrochloride (Renagel) 800 Mg Tab, 1600 MG PO TIDWM for 30 Days, #180 TAB Prov:JARAD SO MD 11/09/23 Reported Medications Levothyroxine Sodium (Levothyroxine Sodium) 75 Mcg Tab, 1 TAB PO QAM 11/02/23 Information Source: Patient Mode of Arrival: Ambulatory Severity: Moderate Timing: Hours Duration: Since onset Prehospital treatment: Other (see HPI) Past Medical History PAST MEDICAL HISTORY: Cancer (multiple myeloma ), ESRD (w/HD M/W/F) Surgical History: Denies all surgeries Family History Family History: Reviewed,noncontributory to illness Social History Smoker: Non-Smoker Alcohol: Denies ETOH Use Drugs: Denies Drug Use Lives In: Home Constitutional: denies: chills, diaphoresis, fatigue, fever, malaise, sweats, weakness, others EENTM: denies: blurred vision, double vision, ear bleeding, ear discharge, ear drainage, ear pain, ear ringing, eye pain, eye redness, hearing loss, mouth pain, mouth swelling, nasal discharge, nose bleeding, nose congestion, nose pain, photophobia, tearing, throat pain, throat swelling, voice changes, others Respiratory: denies: cough, hemoptysis, orthopnea, SOB at rest, shortness of breath, SOB with excertion, stridor, wheezing, others Cardiovascular: denies: chest pain, dizzy spells, diaphoresis, Dyspnea on exertion, edema, irregular heart beat, left arm pain, lightheadedness, palpitations, PND, syncope, others Gastrointestinal: denies: abdomen distended, abdominal pain, blood streaked bowels, constipated, diarrhea, dysphagia, difficulty swallowing, hematemesis, melena, nausea, poor appetite, poor fluid intake, rectal bleeding, rectal pain, vomiting, others Genitourinary: denies: burning, dysuria, flank pain, frequency, hematuria, incontinence, penile discharge, penile sore, pain, testicle pain, testicle swell ing, urgency, others Neurological: denies: dizziness, fainting, headache, left sided numbness, left sided weakness, numbness, paresthesia, pre-existing deficit, right sided numbness, right sided weakness, seizure, speech problems, tingling, tremors, weakness, others Musculoskeletal: reports: others (left rib pain ); denies: back pain, gout, joint pain, joint swelling, muscle pain, muscle stiffness, neck pain Integumetry: denies: bruises, change in color, change in hair/nails, dryness, laceration, lesions, lumps, rash, wounds, others Allergic/Immunocompromised: denies: Difficulty Healing, Frequent Infections, Hives, Itching, others Hematologic/Lymphatic: reports: others (abnormal labs- low HgB); denies: anemia, blood clots, easy bleeding, easy bruising, swollen glands Endocrine: denies: excessive hunger, excessive sweating, excessive thirst, excessive urination, flushing, intolerance to cold, intolerance to heat, unexplained weight gain, unexplained weight loss, others Psychiatric: denies: anxiety, bipolar disorder, depression, hopeless, panic disorder, schizophrenia, sleepless, suicidal, others All Other Systems: Reviewed and Negative Physical Exam General Appearance: Mild Distress HEENT: Pale [place] (L), Pale Conjuntivae (R), Pharynx Normal, TMs Normal Neck: Full Range of Motion, Non-Tender, Normal, Normal Inspection Respiratory: Chest Non-Tender, Lungs Clear, No Accessory Muscle Use, No Respiratory Distress, Normal Breath Sounds Cardiovascular: No Edema, No JVD, No Murmur, No Gallop, Normal Peripheral Pulses, Regular Rate/Rhythm Breast Exam: Deferred Gastrointestinal: No Organomegaly, Non Tender, No Pulsatile Mass, Normal Bowel Sounds, Soft Genitalia: Deferred Pelvic: Deferred Rectal: Deferred Extremities: No calf tenderness, Normal capillary refill, No pedal edema Musculoskeletal : Apperance: Normal Neurologic: Alert, intelligence consultant II-XII nml as Tested, Motor Weakness, Normal Affect, Normal Mood, No Sensory Deficits Cerebellar Function: Normal Reflexes: Normal Skin: Dry, Normal Color, Warm Lymphatic: No Adenopathy Was a procedure done? Was a procedure done?: Yes Sedation Sedation?: No Blood Transfusion Indication: Anemia Procedure: Blood Transfusion Informed consent obtained: Yes Risks/benefits/alt described: Yes Differential Dx Considerations may include: anemia, abnormal labs, s/p dialysis and chemotherapy session X-Ray, Labs, Meds, VS Vital Signs Date Time Temp Pulse Resp B/P (MAP) Pulse Ox O2 Delivery O2 Flow Rate FiO2 02/29/24 18:41 98.2 90 15 101/51 (68) 93 98.2 02/29/24 18:33 98.1 90 18 101/51 98.1 02/29/24 17:33 98.2 85 18 101/59 98.2 02/29/24 17:15 98.4 76 18 106/55 98.4 02/29/24 16:04 98.1 73 14 95/52 (66) 90 98.1 02/29/24 16:04 100 15 91 Room Air* 0 21 02/29/24 15:31 83 02/29/24 13:02 98.0 79 18 104/49 (67) 94 Lab Test 02/29/24 13:04 Range/Units White Blood Count 3.0 L 4.4-10.8 10^3/uL Red Blood Count 2.58 L 4.5-5.90 10^6/uL Hemoglobin 7.3 L 13.5-17.5 g/dL Hematocrit 23.0 L 41.0-53.0 % Mean Corpuscular Volume 89.3 80.0-100.0 fL Mean Corpuscular Hemoglobin 28.5 28.0-32.0 pg Mean Corpuscular Hemoglobin Concent 31.9 L 32.0-36.0 g/dL Red Cell Distribution Width 21.7 H 11.8-14.3 % Platelet Count 191 140-450 10^3/uL Mean Platelet Volume 9.3 6.9-10.8 fL Neutrophils (%) (Auto) 92.6 H 37.0-80.0 % Lymphocytes (%) (Auto) 3.6 L 10.0-50.0 % Monocytes (%) (Auto) 2.3 0.0-12.0 % Eosinophils (%) (Auto) 0.6 0.0-7.0 % Basophils (%) (Auto) 0.9 0.0-2.0 % Neutrophils # (Auto) 2.8 1.6-8.6 10 ^3/uL Lymphocytes # (Auto) 0.1 L 0.4-5.4 10 ^3/uL Monocytes # (Auto) 0.1 0-1.3 10 ^3/uL Eosinophils # (Auto) 0 0-0.8 10 ^3/uL Basophils # (Auto) 0 0-0.2 10 ^3/uL Nucleated Red Blood Cells 0.1 % Sodium Level 140 136-145 mmol/L Potassium Level 4.7 3.5-5.1 mmol/L Chloride Level 103 98-107 mmol/L Carbon Dioxide Level 31 20-31 mmol/L Anion Gap 6 5-15 Blood Urea Nitrogen 32 H 9-23 mg/dL Creatinine 5.75 #H 0.700-1.30 mg/dL Glomerular Filtration Rate Calc 10 >90 mL/min BUN/Creatinine Ratio 5.6 L 10.0-20.0 Serum Glucose 117 H 74-106 mg/dL Calcium Level 9.1 8.7-10.4 mg/dL Total Bilirubin 0.4 0.2-1.0 mg/dL Aspartate Amino Transferase (AST) 9 L 13-40 U/L Alanine Aminotransferase (ALT) 15 7-40 U/L Alkaline Phosphatase 128 H 46-116 U/L Total Protein 5.4 L 5.7-8.2 g/dL Albumin 3.9 3.2-4.8 g/dL The CBC came back with a hemoglobin of 7.3 and hematocrit of 23.0 The patient is going to be transfused with 1 unit of packed red blood cells The patient is being transfused at this time The patient was then being discharged and will follow up with the primary care doctor The patient will return to the emergency department's condition worsens. Time of 1ST Reevaluation: 18:51 Reevaluation 1ST: Improved Patient Education/Counseling: Diagnosis, Treatment, Prognosis Family Education/Counseling: No Family Present Departure 1 Departure Time of Disposition: 18:52 Impression: Primary Impression: Chronic kidney disease on chronic dialysis Additional Impression: Severe anemia Disposition: 01 HOME / SELF CARE / HOMELESS Condition: Fair Discharged With: Self Critical Care Note Critical Care Time?: Yes (35 min-critical care time only) Stability Stability form required: No Heart Score Heart Score: Heart Score Response (Comments) Value History N/A 0 EKG N/A 0 Age N/A 0 Risk Factors N/A 0 Troponin N/A 0 Total 0 I personally scribed for HASEEB LAMB MD ([email or web address]) on 02/29/24 at 14:48. Electronically submitted by Zelalem Mi ([email or web address]). HASEEB LAMB MD Feb 29, 2024 14:48
[2024-02-29 16:04] VITALS: PULSE 100; RESP 15; O2SAT 91
[2024-02-29 17:15] VITALS: BP 106/55; PULSE 76; RESP 18; TEMP 98.4
[2024-02-29 17:33] VITALS: BP 101/59; PULSE 85; RESP 18; TEMP 98.2
[2024-02-29 18:33] VITALS: BP 101/51; PULSE 90; RESP 18; TEMP 98.1
[2024-02-29 18:41] VITALS: O2SAT 93
[2024-02-29 19:08] VITALS: BP 102/51; PULSE 90; RESP 18; TEMP 98.3
== END 2024-02-29 18:52 | disposition home or self-care (01) ==
LOC: ER 12:38
DX: D64.9 Anemia, unspecified (principal); Z99.2 Dependence on renal dialysis; N18.6 End stage renal disease; Z79.899 Other long term (current) drug therapy
CPT/HCPCS: 36415; 36430; 80053; 85025; 86850; 86900; 86901; 86920; 99285; P9016

== ENCOUNTER 2024-08-30 16:22 | Emergency (ER) | payer OTHER ==
[~2024-08-30] VITALS: Ht 172.7 cm; Wt 78.3 kg
--- NOTE | 2024-08-30 16:41 | ECG ---
[facility] Test Date: 2024-08-30 Test Time: 16:39:08 Pat Name: JON VASQUEZ Department: ER Room: Gender: M Cash Office Worker: DRAKE : 1960 Requested By: MARCELLE GONG Order Number: [id number] Reading MD: Carmine Guardado Measurements Intervals [place] Rate: 71 P: 64 DC: 171 QRS: 67 QRSD: 91 T: 18 QT: 389 QTc: 423 Interpretive Statements Sinus rhythm Electronically Signed On 08-31-2024 20:13:30 PDT by Carmine Guardado Please click the below link to view image of tracing.
--- NOTE | 2024-08-30 16:53 | ED.PDOC ---
History of Present Illness HPI Comments past medical history: Multiple myeloma, hypothyroidism, ESRD on dialysis, Past surgical history: brain tumor allergies: denies medications: levothyroxine social history: denies tobacco use, denies ETOH use, denies drug use HPI: Poor Historian. 64-year-old male presents to emergency depart for evaluation of abnormal labs. Blood draws were taken yesterday and he was notified by his family doctor today to go to the ER for abnormal labs. He was never informed exactly what is abnormal. Patient has a full session of dialysis today prior to arrival. I reviewed the patient's notes and noted that he was hyperkalemic yesterday and has slight thrombocytopenia. Patient however is asymptomatic and denies any complaints. Patient is on chemotherapy for multiple myeloma most recently three weeks ago and he still takes oral chemotherapy most recently yesterday. Potassium level is 5.9 yesterday. REVIEW OF SYSTEMS: CONSTITUTIONAL: Denies acute: fever, diaphoresis, chills, generalized weakness. HEAD: Denies acute: headache, photophobia Eyes: Denies acute: Double vision, vision loss, eye pain, eye discharge. EARS: Denies acute: tinnitus, hearing loss, ear discharge, ear pain, THROAT: Denies acute: sore throat, swelling, difficulty swallowing , pain with swallowing, change in voice. NECK: Denies acute: neck pain, neck swelling, stiff neck. HEART: Denies acute : chest pain, palpitations, LUNGS: Denies acute: SOB, wheezing, cough, hemoptysis ABDOMEN: Denies acute: abdominal pain, Nausea, Vomiting, diarrhea, melena , hematemesis, hematochezia SKIN: Denies acute: rash, redness, lesions, itchiness. EXTREMITIES: Denies acute: calf pain, numbness, tingling, weakness, denies pain in extremity. Denies acute: Low back pain. Neuro: Denies acute: focal neurological deficit, motor or sensory focal neurological deficit, tremors, seizure like activity, confusion, dizziness, change in mental status, loss of bowel or bladder function, cauda equina like symptoms. : Denies acute: dysuria, hematuria, flank pain, increase in urinary frequency. PSYCH: Denies acute: hallucination, suicidal ideation, homicidal ideation. PHYSICAL EXAM: General: ---no-----acute distress, awake and alert. Head: normocephalic, atraumatic. Neck: supple, trachea is midline, no swelling. Throat: Normal phonation. Eyes:, no erythema, no purulent discharge, no proptosis, no icterus. Heart: regular rate, regular rhythm, no significant murmur appreciated. Lungs: no apparent respiratory distress, Able to speak in full sentences. No wheezing, no rhonchi, no crackles. No stridors Clear to auscultation bilaterally. Abdomen: non tender to palpation, non distended, soft, no guarding, no rebound, + bowel sounds. Neuro: Awake, Alert, oriented to name, self, situation, follows commands GCS=15. Speech is normal. Skin: no petechia, no purpura, no cyanosis, non-pale, not jaundice. Lower extremities: --no - Pitting edema no deformity, no focal swelling, no calf TTP. Makes eye contact. moves all four extremities. Face: no apparent facial droop. Ambulating in the ED independently. ED COURSE: DISCLAIMER: This medical document was created using an electronic medical record system with voice recognition software and computerized dictation system. Although this document has been carefully reviewed, there might still be some phonetic and typographical errors. Occasional wrong-word or "sound-alike" substitutions may have occurred due to the inherent limitations of voice recognition software. These areas are purely typographical due to imperfections of the software programs and do not reflect any compromise in the patient's medical care. Please read the chart carefully and recognize, using context, where these substitutions have occurred. Chief Complaint: Abnormal LAB's Time Seen by MD: 16:24 Primary Care Provider: UNKNOWN Reviewed Notes: Medications, Allergies Allergies: Coded Allergies: NO KNOWN ALLERGIES (Unverified , 11/01/23) Home Meds Active Scripts Sevelamer Hydrochloride (Renagel) 800 Mg Tab, 1600 MG PO TIDWM for 30 Days, #180 TAB Prov:JARAD SO MD 11/09/23 Reported Medications Levothyroxine Sodium (Levothyroxine Sodium) 75 Mcg Tab, 1 TAB PO QAM 11/02/23 Information Source: Patient Mode of Arrival: Ambulatory Past Medical History PAST MEDICAL HISTORY: Cancer, ESRD Surgical History: Denies all surgeries Family History Family History: Reviewed,noncontributory to illness Social History Smoker: Non-Smoker Alcohol: Denies ETOH Use Drugs: Denies Drug Use Lives In: Home Was a procedure done? Was a procedure done?: No X-Ray, Labs, Meds, VS Vital Signs Date Time Temp Pulse Resp B/P (MAP) Pulse Ox O2 Delivery O2 Flow Rate FiO2 08/30/24 18:45 98.4 68 16 107/64 (78) 96 98.4 08/30/24 16:39 71 08/30/24 16:34 97.9 85 17 122/77 (92) 95 97.9 Lab Test 08/30/24 17:53 08/30/24 16:59 Range/Units Troponin I High Sensitivity 4 4 </=54 ng/L White Blood Count 6.0 4.4-10.8 10^3/uL Red Blood Count 3.63 L 4.5-5.90 10^6/uL Hemoglobin 11.6 L 13.5-17.5 g/dL Hematocrit 33.4 L 41.0-53.0 % Mean Corpuscular Volume 91.9 80.0-100.0 fL Mean Corpuscular Hemoglobin 31.8 28.0-32.0 pg Mean Corpuscular Hemoglobin Concent 34.6 32.0-36.0 g/dL Red Cell Distribution Width 16.2 H 11.8-14.3 % Platelet Count 107 L 140-450 10^3/uL Mean Platelet Volume 10.2 6.9-10.8 fL Neutrophils (%) (Auto) 81.5 H 37.0-80.0 % Lymphocytes (%) (Auto) 5.2 L 10.0-50.0 % Monocytes (%) (Auto) 12.8 H 0.0-12.0 % Eosinophils (%) (Auto) 0.3 0.0-7.0 % Basophils (%) (Auto) 0.2 0.0-2.0 % Neutrophils # (Auto) 4.9 1.6-8.6 10 ^3/uL Lymphocytes # (Auto) 0.3 L 0.4-5.4 10 ^3/uL Monocytes # (Auto) 0.8 0-1.3 10 ^3/uL Eosinophils # (Auto) 0 0-0.8 10 ^3/uL Basophils # (Auto) 0 0-0.2 10 ^3/uL Nucleated Red Blood Cells 0.0 % Sodium Level 142 136-145 mmol/L Potassium Level 4.6 3.5-5.1 mmol/L Chloride Level 101 98-107 mmol/L Carbon Dioxide Level 27 20-31 mmol/L Anion Gap 14 5-15 Blood Urea Nitrogen 44 H 9-23 mg/dL Creatinine 6.13 H 0.700-1.30 mg/dL Glomerular Filtration Rate Calc 10 >90 mL/min BUN/Creatinine Ratio 7.2 L 10.0-20.0 Serum Glucose 82 74-106 mg/dL Lactic Acid Level 1.0 0.4-2.0 mmol/L Calcium Level 7.9 L 8.7-10.4 mg/dL Magnesium Level 2.3 1.6-2.6 mg/dL Total Bilirubin 0.5 0.2-1.0 mg/dL Aspartate Amino Transferase (AST) 15 <34 U/L Alanine Aminotransferase (ALT) 14 7-40 U/L Alkaline Phosphatase 132 H 46-116 U/L Total Protein 6.8 5.7-8.2 g/dL Albumin 4.9 H 3.2-4.8 g/dL Patient Education/Counseling: Diagnosis, Treatment Family Education/Counseling: No Family Present Departure 1 Departure Time of Disposition: 18:28 Impression: Primary Impression: End-stage renal disease on hemodialysis Additional Impression: Thrombocytopenia Disposition: 01 HOME / SELF CARE / HOMELESS Condition: Stable Additional Instructions: Additional instructions: You MUST follow-up with your primary care/family doctor in 1 to 2 days. If you are unable to see your primary care/family doctor, please return to our emergency room for re-assessment and re-evaluation in 1 to 2 days. Return to the emergency room here in our facility or to the nearest ER [facility] if your symptoms change or worsen. CONSULTATIONS: you MUST Follow-up for consultation as soon as possible with: -nephrology and hematology oncology in 1-2 days. Please call for appointment. You MUST call the consultants office yourself to make an appointment. You may need to arrange that through your insurance and/or your primary/family doctor. If you are unable to see the [facility] consultant in 1 to 2 days, you must return to our emergency room (or any other ER of your choice) for re-assessment and re- evaluation. Adequate fluid hydration. Discharged With: Self I personally scribed for MARCELLE GONG DO ([facility]) on 08/30/24 at 16:53. Electronically submitted by Estephanie Henson ([facility]). MARCELLE GONG DO Aug 30, 2024 16:53
[2024-08-30 17:50] LABS: Basophils # (auto) 0 10 ^3/uL (0-0.2); Basophils % (auto) 0.2 % (0.0-2.0); Eosinophils # (auto) 0 10 ^3/uL (0-0.8); Eosinophils % (auto) 0.3 % (0.0-7.0); Hematocrit 33.4 % (41.0-53.0); Hemoglobin 11.6 g/dL (13.5-17.5); Lymphocytes # (auto) 0.3 10 ^3/uL (0.4-5.4); Lymphocytes % (auto) 5.2 % (10.0-50.0); Mean Corpuscular Hemoglobin 31.8 pg (28.0-32.0); Mean Corpuscular Hgb Conc. 34.6 g/dL (32.0-36.0); Mean Corpuscular Volume 91.9 fL (80.0-100.0); Monocytes # (auto) 0.8 10 ^3/uL (0-1.3); Monocytes % (auto) 12.8 % (0.0-12.0); Neutrophils # (auto) 4.9 10 ^3/uL (1.6-8.6); Neutrophils % (auto) 81.5 % (37.0-80.0); Red Blood Cells 3.63 10^6/uL (4.5-5.90); Red Cell Distribution Width 16.2 % (11.8-14.3)
[2024-08-30 18:08] LABS: Alanine Aminotransferase 14 U/L (7-40); Anion Gap 14 (5-15); Aspartate Aminotransferase 15 U/L (<34); BUN/Creatinine Ratio 7.2 (10.0-20.0); Carbon Dioxide 27 mmol/L (20-31); Chloride 101 mmol/L (98-107); Glucose 82 mg/dL (74-106); Magnesium 2.3 mg/dL (1.6-2.6); Potassium 4.6 mmol/L (3.5-5.1); Sodium 142 mmol/L (136-145); Total Protein 6.8 g/dL (5.7-8.2)
[2024-08-30 18:09] LABS: Bilirubin, Total 0.5 mg/dL (0.2-1.0)
[2024-08-30 18:17] LABS: Platelet Count (auto) 107 10^3/uL (140-450)
[2024-08-30 18:18] LABS: Albumin 4.9 g/dL (3.2-4.8); Alkaline Phosphatase 132 U/L (46-116); Blood Urea Nitrogen 44 mg/dL (9-23); Calcium 7.9 mg/dL (8.7-10.4)
[2024-08-30 20:24] VITALS: BP 105/62; PULSE 62; RESP 17; TEMP 98.1; O2SAT 98
== END 2024-08-30 20:16 | disposition home or self-care (01) ==
LOC: ER 16:22
DX: D69.6 Thrombocytopenia, unspecified (principal); N18.6 End stage renal disease; E03.9 Hypothyroidism, unspecified; C90.00 Multiple myeloma not having achieved remission; E87.5 Hyperkalemia; Z99.2 Dependence on renal dialysis; Z79.899 Other long term (current) drug therapy; Z79.890 Hormone replacement therapy
CPT/HCPCS: 36415; 80053; 83605; 83735; 84484; 85025; 93005